=== PATIENT | male | born 1985 | race African-American/Black ===

== ENCOUNTER 2019-06-04 14:45 | Emergency (ER) | payer OTHER ==
[2019-06-04 14:55] VITALS: BP 148/85; PULSE 73; TEMP 97.6; BMI 28.3
[2019-06-04] MEDS ORDERED: DIPHTH,PERTUSS(ACELL),TET 0.5 ML DISP.SYRIN IM ONE ×2 (15:37→16:02)
--- NOTE | 2019-06-04 15:42 | PDOC ---
History of Present Illness - General Chief Complaint: Injury Stated Complaint: L FOOT INJURY Time Seen by Provider: 06/04/19 15:03 History Source: Patient Exam Limitations: No Limitations Past History - Travel Traveled outside of the country in the last 30 days: No Close contact w/someone who was outside of country & ill: No - Past Medical History Allergies/Adverse Reactions: Allergies Allergy/AdvReac Type Severity Reaction Status Date / Time No Known Allergies Allergy Verified 06/04/19 14:55 Home Medications: Ambulatory Orders Cephalexin Monohydrate [Keflex -] 500 mg PO BID #14 capsule 06/04/19 Sulfamethoxazole/Trimethoprim [Bactrim Ds -] 1 tab PO BID #14 tablet 06/04/19 COPD: No - Immunization History Immunization Up to Date: No - Psycho Social/Smoking Cessation Hx Smoking History: Never smoked Review of Systems - Review of Systems Able to Perform ROS?: Yes Comments:: 06/04/19 15:39 CONSTITUTIONAL: Absent: fever, chills, diaphoresis, generalized weakness, malaise, loss of appetite HEENT: Absent: rhinorrhea, nasal congestion, throat pain, throat swelling, difficulty swallowing, mouth swelling, ear pain, eye pain, visual Changes MUSCULOSKELETAL: Absent: myalgia, arthralgia, joint swelling SKIN: Present: L foot lac Absent: rash, itching, pallor HEMATOLOGIC/IMMUNOLOGIC: Absent: easy bleeding, easy bruising, lymphadenopathy, frequent infections NEUROLOGIC: Absent: headache, focal weakness or paresthesias, dizziness, unsteady gait, seizure, mental status changes, bladder or bowel incontinence PSYCHIATRIC: Absent: anxiety, depression, suicidal or homicidal ideation, hallucinations. Is the patient limited Maori proficient: No *Physical Exam - Vital Signs Last Vital Signs Temp Pulse Resp BP Pulse Ox 97.6 F 73 18 148/85 99 06/04/19 14:51 06/04/19 14:51 06/04/19 14:51 06/04/19 14:51 06/04/19 14:51 - Physical Exam Comments: 06/04/19 15:39 GENERAL: The patient is awake, alert, and fully oriented, in no acute distress. HEAD: Normal with no signs of trauma. EYES: Pupils equal, round and reactive to light, extraocular movements intact, sclera anicteric, conjunctiva clear. EXTREMITIES: Normal range of motion, no edema. NEUROLOGICAL: Normal speech, normal gait. PSYCH: Normal mood, normal affect. SKIN: 0.5cm stellate laceration to the mid L foot. Bleeding controlled. Warm, Dry, normal turgor, no rashes or lesions noted. Medical Decision Making - Medical Decision Making 06/04/19 16:40 The patient is a 34 y/o M who presents to the ER for a puncture wound to the bottom of his L foot. He states that he stepped on a broken beer bottle and it went through the bottom of his shoe. He is unsure of his tetanus status. Denies fevers, chills, weakness to the foot, numbness and tingling. A/P: Puncture wound On exam 0.5cm puncture wound to the bottom of the L foot. No fb on x-ray Wound cleaned under high pressure Wound is closed, no sutures at this time Start bactrim and keflex as bottle went through shoe bottom DC home I discussed the physical exam findings, ancillary test results and final diagnoses with the patient. I answered all of the patient's questions. The patient was satisfied with the care received and felt comfortable with the discharge plan and treatment plan. The Patient agrees to follow up with the primary care physician/specialist within 24-72 hours. Return precautions were given. Discharge - Discharge Information Problems reviewed: Yes Clinical Impression/Diagnosis: Puncture wound Condition: Stable - Admission No - Additional Discharge Information Prescriptions: Cephalexin Monohydrate [Keflex -] 500 mg PO BID #14 capsule Sulfamethoxazole/Trimethoprim [Bactrim Ds -] 1 tab PO BID #14 tablet - Follow up/Referral Referrals: Justin Koo MD [Staff Physician] - - Patient Discharge Instructions Patient Printed Discharge Instructions: DI for Puncture Wound Additional Instructions: Your evaluated for your puncture wound today. Your x-ray does not show any glass in the foot. Please keep the area clean and dry for 24 hours. Please wear the dressing to keep the pressure off the area. take the Bactrim and Keflex twice a day to prevent infection for one week. Please follow up with her primary care doctor this week. Return to the ER for worsening pain, fever, drainage from the site, or if you have any changes in your symptoms. - Post Discharge Activity Work/Back to School Note: Back to Work
== END 2019-06-04 16:45 | disposition home or self-care (01) ==
LOC: JERFT 14:45
PROC: 3E0234Z Introduction of Serum, Toxoid and Vaccine into Muscle, Percutaneous Approach (ICD-10-PCS; principal; 2019-06-04)
DX: S91.332A Puncture wound without foreign body, left foot, initial encounter (principal); W25.XXXA Contact with sharp glass, initial encounter; Y93.89 Activity, other specified; Y92.89 Other specified places as the place of occurrence of the external cause; Y99.8 Other external cause status
CPT/HCPCS: 73630-TC-LT; 90715; 99282-25